=== PATIENT | male | born 1950 | race Caucasian/White ===

== ENCOUNTER → 2016-06-15 | Outpatient (CLI) | payer BC | END | disposition home or self-care (01) | LOC: GMAB 10:51 | PROVIDERS: ATTEND Family Medicine | DX: Z00.00 Encounter for general adult medical examination without abnormal findings (principal) ==

== ENCOUNTER → 2016-07-28 | Outpatient (CLI) | payer BC, SELFPAY ==
--- NOTE | 2016-07-28 16:44 | US ---
EXAM DESCRIPTION: Renal Arteries CLINICAL HISTORY: 66 years, Male, ESSENTIAL PRIMARY HYPERTENSION COMPARISON: None. FINDINGS: Renal artery Doppler examination with grayscale, color Doppler and pulse Doppler evaluation was performed. Mid aortic peak systolic velocity is 88 cm/s. On the right, peak systolic velocities are present in the renal artery proximally at 93 cm/s with mid renal artery velocities of 78 cm/s and distal renal artery velocities of 60 cm/s with a renal artery aortic ratio of 1.1 On the left peak renal artery velocities are present proximally at 85 cm/s with the mid renal artery velocities of 46 cm/s and distal renal artery velocities of 37 cm/s. The renal artery aortic ratio is 1.0 IMPRESSION: Essentially normal examination with no elevated velocities or increased renal artery/aortic ratios. Electronically signed by: Randolph Ding MD 07/28/2016 4:44 PM CDT
== END | disposition home or self-care (01) ==
LOC: US 10:25
PROVIDERS: ATTEND Family Medicine
DX: I10 Essential (primary) hypertension (principal)

== ENCOUNTER → 2016-12-15 | Outpatient (CLI) | payer MEDICARE | END | disposition home or self-care (01) | LOC: GMAB 10:39 | PROVIDERS: ATTEND Family Medicine | DX: R97.20 Elevated prostate specific antigen [PSA] (principal); I10 Essential (primary) hypertension ==